=== PATIENT | male | born 1970 | race Two or more races ===

== ENCOUNTER 2022-05-05 04:23 | Emergency (ER) | payer MEDICAID, OTHER, SELFPAY ==
[2022-05-05 05:00] VITALS: BP 145/100; PULSE 61; RESP 18; TEMP 36.6; O2SAT 100; BMI 28.0
[2022-05-05 06:00] VITALS: BP 131/72; PULSE 62; RESP 18; TEMP 37.1; O2SAT 97
--- NOTE | 2022-05-05 08:47 | ED_ITS ---
HPI - Back Pain/Injury General Chief Complaint: Back Pain/Injury Stated Complaint: pain in side Time Seen by Provider: 05/05/22 08:38 Source: patient Mode of arrival: ambulatory Limitations: no limitations History of Present Illness HPI Narrative: 51 yo male presents to the ER for evaluation of low back pain that started 4 days ago after lifting heavy object. He reports the pain is worse when he has to bend down and tie his shoes or get something off the ground. It is nonradiating and is across his entire lower back. He reports it is worse in the morning when he tries to get up out of bed. He denies any urinary or bowel incontinence. He reports no bowel movement in the last 2 days and feels like he needs to go. He denies any nausea, vomiting, diarrhea or abdominal pain. 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 He denies LE weakness, numbness of tingling. No urinary symptoms. MD elicited complaint: back pain and back injury Onset (ago): day(s) (4) Timing: constant Severity: moderate Pain scale (0-10): 7 Similar Symptoms Previously: No Quality: aching and spasming Location: right lower back and left lower back Radiation: none Exacerbating factors: movement Relieving factors: immobilization Context: while lifting Associated symptoms: denies other symptoms Related Data Previous Rx's Medication Instructions Recorded cyclobenzaprine 10 mg tablet 10 mg PO TID PRN muscle spasm #14 05/05/22 tabs ibuprofen 600 mg tablet 600 mg PO Q8H PRN pain #14 tabs 05/05/22 lidocaine 5 % topical patch 1 patch topical DAILY #15 ea 05/05/22 polyethylene glycol 3350 17 17 g PO DAILY PRN constipation 05/05/22 gram/dose oral powder (Miralax) #119 grams Allergies Allergy/AdvReac Type Severity Reaction Status Date / Time No Known Allergies Allergy Verified 05/05/22 04:59 Review of Systems Review of Systems: Constitutional: No Fever, No Chills Cardiovascular: No Chest Pain, No SOB Gastrointestinal: No Nausea, No Vomiting, No Diarrhea, No abdominal Pain, No Hematochezia, No Melena, +Constipation Genitourinary: No Dysuria, No Urinary Frequency, No Hematuria Musculoskeletal: + joint pain, + Myalgias Skin: No Skin Lesions, No rash Neuro: No Weakness, No Numbness, No Dizziness, No Headache Psych: No Anxiety/Panic, No Depression Heme/Lymph: No Bruising, No Lymphadenopathy Endocrine: No Polyuria, No Polydipsia PMFSH Social History Social History Advance Directives: No Advance Directives Information Provided: No Physical Exam Vital Signs: Vital Signs: Last Vital Signs Temp 98.7 F 05/05/22 06:00 Pulse 62 05/05/22 06:00 Resp 18 05/05/22 06:00 BP 131/72 05/05/22 06:00 Pulse Ox 97 05/05/22 06:00 O2 Del Method 05/05/22 06:00 BMI result Body Mass Index 28.0 Appearance: Alert. Oriented X3. No acute distress. HEENT: normal inspection CVS: Normal heart rate and rhythm. Pulses normal. Respiratory: No respiratory distress. Skin: Skin warm and dry. Normal skin color. Normal skin turgor. No rashes. Abd: soft, NT/ND, +BS x4 Back: normal inspection. low lumbar soft tissue tenderness bilaterally, pain with spinal flexion. no CVA tenderness. negative straight leg raise test. Extremities: normal inspection x4. Neuro: Oriented X 3. No motor deficit. No sensory deficit. Steady gait Course Course Course Narrative: 51 y/o male presenting with low back pain s/p heavy lifting on Monday. No red flag symptoms of LBP. Most likely muscle strain and spasm. Will treat accordingly. Work noted provided per request. Stable for d/c home. 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 Discharge Plan Discharge Clinical Impression: Strain of lumbar region Patient Disposition: Home, Self-Care Instructions: Low Back Strain (ED), Lower Back Exercises (ED) Additional Instructions: Your pain is most likely due to muscle strain and spasm. No bending, lifting or twisting. Use ice several times per day for 20 minutes at a time for the next 48 hours and then change to heat. Take medications as prescribed to help with pain and discomfort. Follow up with your Primary Care Doctor this week. If your pain worsens, if you develop new numbness, tingling, weakness, loss of function or incontinence call 911 or come back to the ER right away for evaluation. Meds were sent to [facility] in [place]. Lo m?s probable es que dove dolor se deba a tensi?n y espasmos musculares. Sin doblar, levantar o torcer. Use hielo varias veces al d?a nasrin 20 minutos a la vez nasrin las pr?ximas 48 horas y luego cambie a calor. [place] los medicamentos seg?n lo prescrito para ayudar con el dolor y la incomodidad. Nenita un seguimiento con dove m?dico de atenci?n primaria esta semana. Si dove dolor empeora, si desarrolla un nuevo entumecimiento, hormigueo, debilidad, p?rdida de funci?n o incontinencia, llame al 911 o regrese a la ronald de emergencias de inmediato para yoseph evaluaci?n. Prescriptions: New cyclobenzaprine 10 mg tablet 10 mg PO TID PRN (Reason: muscle spasm) Qty: 14 0RF ibuprofen 600 mg tablet 600 mg PO Q8H PRN (Reason: pain) Qty: 14 0RF lidocaine 5 % adhesive patch,medicated 1 patch topical DAILY Qty: 15 0RF Rx Instructions: leave on most painful area for up to 12 hrs polyethylene glycol 3350 [Miralax] 17 gram/dose powder 17 g PO DAILY PRN (Reason: constipation) Qty: 119 0RF Stand Alone Forms: Work/School Release Print Language: Icelandic
== END 2022-05-05 11:05 | disposition home or self-care (01) ==
PROVIDERS: Emergency Provider Emergency Medicine
DX: S39.012A Strain of muscle, fascia and tendon of lower back, initial encounter (principal); X50.0XXA Overexertion from strenuous movement or load, initial encounter; Y93.9 Activity, unspecified; Y92.9 Unspecified place or not applicable; Y99.9 Unspecified external cause status
CPT/HCPCS: 99282; 99283